=== PATIENT | male | born 1950 | race Caucasian/White ===

== ENCOUNTER 2018-11-05 10:36 | Day surgery (SDC) | payer OTHER, BC ==
[2018-11-01 10:28] VITALS: BMI 26.4
[2018-11-05] MEDS ORDERED: MIDAZOLAM HCL 2 MG/2 ML SINGLE DOSE VIAL ONE (13:18)
[2018-11-05] MEDS ORDERED: DEXAMETHASONE SOD PHOSPHATE 4 MG/1 ML VIAL ONE (13:18)
[2018-11-05] MEDS ORDERED: ONDANSETRON 4 MG/2 ML VIAL ONE (13:18)
[2018-11-05] MEDS ORDERED: oxyCODONE HCL 5 MG TABLET PO PRN ×2 (14:10)
[2018-11-05] MEDS ORDERED: PROMETHAZINE HCL 25 MG/1 ML VIAL IVPUSH PRN (14:10)
[2018-11-05] MEDS ORDERED: ONDANSETRON 4 MG/2 ML VIAL IVPUSH PRN (14:10)
[2018-11-05] MEDS ORDERED: ONDANSETRON 4 MG/2 ML VIAL IVPUSH ONE (14:20)
[2018-11-05] MEDS ORDERED: IBUPROFEN 400 MG TABLET (FP) PO PRN (14:26)
--- NOTE | 2018-11-05 14:27 | PN ---
Progress Note (short form) - Note Progress Note: 68M s/p open right third (long) trigger finger release POD #0. -Pain control. -Incentive spirometry. -NWB RUE. -Keep dressing clean & dry. -Percocet, Duexis ordered to pharmacy for analgesia; OK to use OTC NSAID's instead. -Elevate wrist/hand above level of heart. -Discharge home: f/u [facility] [place] Office Thu11/12/2018; call for appointment: . Federico Ulrich MD (Orthopaedic Surgery).
--- NOTE | 2018-11-05 15:22 | OP ---
Operative Note - Note: Operative Date: 11/05/18 Pre-Operative Diagnosis: Left 3rd (long) trigger finger Operation: Open left 3rd (long) trigger finger release Post-Operative Diagnosis: Same as Pre-op Surgeon: Federico Ulrich Anesthesiologist/MARBLE SUPERVISOR: Austin Ramirez Anesthesia: General Estimated Blood Loss (mls): 0 Fluid Volume Replaced (mls): 500 (Crystalloid) Operative Report Dictated: Yes
[2018-11-05] MEDS ORDERED: oxyCODONE HCL 5 MG TABLET ONE (15:43)
[2018-11-05 15:57] VITALS: BP 120/80; PULSE 65; TEMP 97.8
--- NOTE | 2018-11-06 09:20 | OP ---
DATE OF OPERATION: 11/05/2018 SURGEON: Federico Ulrich MD CHANCERY CLERK: Nursing staff, [facility]. PREOPERATIVE DIAGNOSIS: Right 3rd finger trigger-finger. POSTOPERATIVE DIAGNOSIS: Right 3rd finger trigger-finger. OPERATION PERFORMED: Right middle finger trigger-finger release. ANESTHESIA: General. ANTIBIOTICS: Nil. OPERATION IN DETAIL: The patient was in supine. On the bloodless field, the right upper limb was prepped and draped in the routine manner with Betadine scrub solution, wiped with alcohol, DuraPrep applied. Tourniquet was applied. Tourniquet time in total was 4 minutes. By the volar crease of the mid palmar hand, the dissection was taken down through the palmar fascia right down to the bulbous space of the tunnel and flexes to the A1 robe. The A1 robe was clearly identified. This was incised revealing a thickened friable cartilaginous structure of the A1 roeb. This was opened and immediately the bulbous tendon mass noted, and this moved freely with full flexion full extension of the finger. The wound was lavaged. Skin closed with Monocryl 3-0 interrupted sutures; they were vertical mattress. No complications. Boggy dressing applied. MD ELLI Myers/[id number]
[2018-11-06] MEDS ORDERED: PATIENT'S OWN MEDICATION (NON-FORMULARY) (Finasteride [Finasteride] 1 MG) PO SCH (10:00)
== END 2018-11-05 16:35 | disposition home or self-care (01) ==
LOC: FASU 10:36
PROVIDERS: ATTEND Orthopaedic Surgery Orthopaedic Surgery of the Spine
PROC: 0LN70ZZ Release Right Hand Tendon, Open Approach (ICD-10-PCS; principal; 2018-11-05 12:15)
DX: M65.331 Trigger finger, right middle finger (principal)
CPT/HCPCS: 94760